=== PATIENT | male | born 1975 | race Two or more races ===

== ENCOUNTER 2016-11-24 08:26 | Emergency (ER) | payer SELFPAY ==
[~2016-11-24] VITALS: Ht 165.1 cm; Wt 72.6 kg
--- NOTE | 2016-11-24 08:36 | PHYS DOC ---
Adult General Chief Complaint Chief Complaint: ABDOMINAL PAIN [facility] HPI Patient is a 41 year old male who presents with testicular pain he states it started Sunday night and then on Sunday he went to an urgent care and was started on Bactrim and Flagyl. States the pains been getting worse and last night he cried secondary to pain. He denies any nausea vomiting fevers or chills. He does have some troubles urinating and feels like he has to force his urine out otherwise doesn't complain of dysuria. He states he's been having anal sex with his occasionally. He denies any history of sexually transmitted infections. Review of Systems Review of Systems Constitutional: Denies fever or chills [] Eyes: Denies change in visual acuity, redness, or eye pain [] HENT: Denies nasal congestion or sore throat [] Respiratory: Denies cough or shortness of breath [] Cardiovascular: No additional information not addressed in HPI [] GI: Denies abdominal pain, nausea, vomiting, bloody stools or diarrhea [] : Denies dysuria or hematuria [] Musculoskeletal: Denies back pain or joint pain [] Integument: Denies rash or skin lesions [] Neurologic: Denies headache, focal weakness or sensory changes [] Endocrine: Denies polyuria or polydipsia [] Allergies Allergies Allergies Coded Allergies Type Severity Reaction Last Updated Verified No Known Drug Allergies 11/24/16 No Physical Exam Physical Exam Constitutional: Well developed, well nourished, no acute distress, non-toxic appearance. [] HENT: Normocephalic, atraumatic, bilateral external ears normal, oropharynx moist, no oral exudates, nose normal. [] Eyes: PERRLA, EOMI, conjunctiva normal, no discharge. [] Neck: Normal range of motion, no tenderness, supple, no stridor. [] Cardiovascular:Heart rate regular rhythm, no murmur [] Lungs & Thorax: Bilateral breath sounds clear to auscultation [] Abdomen/genital: Bowel sounds normal, soft, no tenderness, no masses, no pulsatile masses. Left testicle swollen, approximately one half times the size of the right one. Skin: Warm, dry, no erythema, no rash. [] Back: No tenderness, no CVA tenderness. [] Extremities: No tenderness, no cyanosis, no clubbing, ROM intact, no edema. [] Neurologic: Alert and oriented X 3, normal motor function, normal sensory function, no focal deficits noted. [] Psychologic: Affect normal, judgement normal, mood normal. [] Current Patient Data Vital Signs Vital Signs Date Time Temp Pulse Resp B/P (MAP) Pulse Ox O2 Delivery O2 Flow Rate FiO2 11/24/16 08:39 97.9 77 18 108/67 (81) 100 Room Air 97.9 Lab Values Laboratory Tests Test 11/24/16 08:45 11/24/16 08:50 Urine Collection Type Void Urine Color Yellow Urine Clarity Clear Urine pH 6.0 Urine Specific [place] 1.025 Urine Protein Negative mg/dL (NEG-TRACE) Urine Glucose (UA) Negative mg/dL (NEG) Urine Ketones (Stick) Negative mg/dL (NEG) Urine Blood Negative (NEG) Urine Nitrite Negative (NEG) Urine Bilirubin Negative (NEG) Urine Urobilinogen Dipstick 0.2 mg/dL (0.2 mg/dL) Urine Leukocyte Esterase Small (NEG) Urine RBC Occ /HPF (0-2) Urine WBC 11-20 /HPF (0-4) Urine Squamous Epithelial Cells Few /LPF Urine Bacteria Few /HPF (0-FEW) Urine Mucus Marked /LPF White Blood Count 7.6 x10^3/uL (4.0-11.0) Red Blood Count 5.04 x10^6/uL (4.30-5.70) Hemoglobin 14.3 g/dL (13.0-17.5) Hematocrit 42.1 % (39.0-53.0) Mean Corpuscular Volume 84 fL (79-100) Mean Corpuscular Hemoglobin 28 pg (25-35) Mean Corpuscular Hemoglobin Concent 34 g/dL (31-37) Red Cell Distribution Width 13.6 % (11.5-14.5) Platelet Count 343 x10^3/uL (140-400) Neutrophils (%) (Auto) 68 % (31-73) Lymphocytes (%) (Auto) 17 % (24-48) L Monocytes (%) (Auto) 13 % (0-9) H Eosinophils (%) (Auto) 2 % (0-3) Basophils (%) (Auto) 1 % (0-3) Neutrophils # (Auto) 5.2 x10^3uL (1.8-7.7) Lymphocytes # (Auto) 1.3 x10^3/uL (1.0-4.8) Monocytes # (Auto) 0.9 x10^3/uL (0.0-1.1) Eosinophils # (Auto) 0.1 x10^3/uL (0.0-0.7) Basophils # (Auto) 0.1 x10^3/uL (0.0-0.2) Prothrombin Time 13.5 SEC (11.7-14.0) Prothrombin Time INR 1.1 (0.8-1.1) PTT 32 SEC (24-38) Sodium Level 136 mmol/L (136-145) Potassium Level 4.4 mmol/L (3.5-5.1) Chloride Level 101 mmol/L (98-107) Carbon Dioxide Level 33 mmol/L (21-32) H Anion Gap 2 (6-14) L Blood Urea Nitrogen 24 mg/dL (8-26) Creatinine 1.4 mg/dL (0.7-1.3) H Estimated GFR (Cockcroft-Gault) 55.8 Glucose Level 111 mg/dL (70-99) H Calcium Level 9.5 mg/dL (8.5-10.1) Total Bilirubin 0.1 mg/dL (0.2-1.0) L Direct Bilirubin 0.1 mg/dL (0.0-0.2) Aspartate Amino Transferase (AST) 22 U/L (15-37) Alanine Aminotransferase (ALT) 30 U/L (16-63) Alkaline Phosphatase 102 U/L (46-116) Creatine Kinase 134 U/L (39-308) Creatine Kinase MB (Mass) 0.9 ng/mL (0.0-3.6) Creatine Kinase MB Relative Index 0.7 % (0-4) Total Protein 8.1 g/dL (6.4-8.2) Albumin 3.2 g/dL (3.4-5.0) L Lipase 160 U/L (73-393) Laboratory Tests 11/24/16 08:50 Laboratory Tests 11/24/16 08:50 EKG EKG [] Radiology/Procedures Radiology/Procedures [facility] [address] [place] [address] IMAGING REPORT Signed PATIENT: MAGGIE STYLES ACCOUNT: [id number] : 1975 LOCATION: ER AGE: 41 SEX: M EXAM STATUS: REG ER ORD. PHYSICIAN: KJ VERDIN MD REASON: testicular pain PROCEDURE: TESTICULAR/SCROTUM Duplex sonography of the scrotum and testicles Clinical indications: Left testicular pain for 6 days. Findings: Duplex sonography of the scrotum and testicles was performed including man scale evaluation and color flow and waveform spectral analysis. The longitudinal and AP and transverse dimensions of the right testicle are 3.9 cm and 1.9 cm and 2.5 cm respectively. The longitudinal and AP and transverse dimensions of the left testicle are 3.4 cm and 1.9 cm and 2.2 cm respectively. Both testicles are homogeneous and exhibit symmetric color Doppler flow. Therefore, no testicular torsion is seen. There is abnormal diffuse enlargement of the left epididymis with significant hyperemia consistent with epididymitis. The left epididymis measures 25 mm in thickness. A small left tunica albuginea cyst is seen measuring 5 mm. Minimal left-sided hydrocele is seen. IMPRESSION: Severe left-sided epididymitis. DICTATED and SIGNED BY: MARY BINGHAM MD DATE: 11/24/16924 CC: KJ VERDIN MD; NO PCP ~ Impressions: Epididymitis Course & Med Decision Making Course & Med Decision Making Pertinent Labs and Imaging studies reviewed. (See chart for details) Patient has epididymitis and likely orchitis well. He's been on Bactrim and Flagyl the last 5 days and not improving. Ultrasound shows severe epididymitis. He is being switched to Levaquin 5 mg by mouth daily for 10 days and to follow- up with Dr. Finn's office. He is instructed to follow-up at with Dr. Finn is unable to fit him into his schedule. He is being discharged with [place] for pain and instructed not to drive while taking this medicine or drink alcohol. He is instructed to use condoms when having intercourse. TURP precautions given his agreeable to the plan and being discharged in stable condition this time. and sister were present for most of the interview process. Dragon Disclaimer Dragon Disclaimer This electronic medical record was generated, in whole or in part, using a voice recognition dictation system. Departure Departure Impression: Primary Impression: Epididymitis Disposition: HOME, SELF-CARE Condition: STABLE Referrals: FRANKLIN FINN MD Patient Instructions: Epididymitis Additional Instructions: You have epididymitis and possible inflammation of your testicles well. You will need take antibiotics for the next 10 days. You can also take pain meds as needed for pain and discomfort. You should follow-up with Dr. Finn. Please call his office on Sunday and schedule follow-up appointment. Return ER for severe pain, fevers, worsening swelling of your testicle or other concerns. Scripts Levofloxacin (LEVAQUIN) 500 Mg Tablet 1 TAB PO DAILY, #10 TAB Prov: KJ VERDIN MD 11/24/16 KJ VERDIN MD Nov 24, 2016 08:36
[2016-11-24 09:06] LABS: BASO # 0.1 x10^3/uL (0.0-0.2); BASO % 1 % (0-3); EOS % 2 % (0-3); HEMATOCRIT 42.1 % (39.0-53.0); HEMOGLOBIN 14.3 g/dL (13.0-17.5); LYMPH # 1.3 x10^3/uL (1.0-4.8); LYMPH % 17 % (24-48); MEAN CORPUSCULAR HEMOGLOBIN 28 pg (25-35); MEAN CORPUSCULAR HGB CONC 34 g/dL (31-37); MEAN CORPUSCULAR VOLUME 84 fL (79-100); MONO % 13 % (0-9); NEUT % 68 % (31-73); PLATELET COUNT 343 x10^3/uL (140-400); RED BLOOD COUNT 5.04 x10^6/uL (4.30-5.70); RED CELL DISTRIBUTION WIDTH 13.6 % (11.5-14.5); WHITE BLOOD COUNT 7.6 x10^3/uL (4.0-11.0)
[2016-11-24 09:08] LABS: BILIRUBIN,URINE NEGATIVE (NEG); GLUCOSE,URINE NEGATIVE (NEG); NITRITE,URINE NEGATIVE (NEG); PROTEIN,URINE NEGATIVE (NEG-TRACE); UROBILINOGEN,URINE 0.2 mg/dL (0.2 mg/dL)
[2016-11-24 09:15] LABS: SQUAMOUS EPITHELIAL CELL,UR FEW /LPF
[2016-11-24 09:16] LABS: INR 1.1 (0.8-1.1); PROTHROMBIN TIME PATIENT 13.5 SEC (11.7-14.0)
[2016-11-24 09:18] LABS: BACTERIA,URINE FEW /HPF (0-FEW); RBC,URINE OCC /HPF (0-2)
[2016-11-24 09:19] LABS: CALCIUM 9.5 mg/dL (8.5-10.1); CREATININE 1.4 mg/dL (0.7-1.3); GFR 55.8; POTASSIUM 4.4 mmol/L (3.5-5.1)
[2016-11-24 09:25] LABS: ALBUMIN 3.2 g/dL (3.4-5.0); DIRECT BILIRUBIN 0.1 mg/dL (0.0-0.2); TOTAL BILIRUBIN 0.1 mg/dL (0.2-1.0); TOTAL PROTEIN 8.1 g/dL (6.4-8.2)
--- NOTE | 2016-11-24 09:31 | RAD ---
Duplex sonography of the scrotum and testicles Clinical indications: Left testicular pain for 6 days. Findings: Duplex sonography of the scrotum and testicles was performed including man scale evaluation and color flow and waveform spectral analysis. The longitudinal and AP and transverse dimensions of the right testicle are 3.9 cm and 1.9 cm and 2.5 cm respectively. The longitudinal and AP and transverse dimensions of the left testicle are 3.4 cm and 1.9 cm and 2.2 cm respectively. Both testicles are homogeneous and exhibit symmetric color Doppler flow. Therefore, no testicular torsion is seen. There is abnormal diffuse enlargement of the left epididymis with significant hyperemia consistent with epididymitis. The left epididymis measures 25 mm in thickness. A small left tunica albuginea cyst is seen measuring 5 mm. Minimal left-sided hydrocele is seen. IMPRESSION: Severe left-sided epididymitis.
[2016-11-24 09:33] LABS: CKMB MASS 0.9 ng/mL (0.0-3.6)
[2016-11-24 10:20] VITALS: BP 114/79
[2016-11-24] MEDS ORDERED: LEVO500T59 PO (11:27)
== END 2016-11-24 11:59 | disposition home or self-care (01) ==
LOC: ER 08:26
DX: N45.1 Epididymitis (principal)
CPT/HCPCS: 36415; 76870; 80048; 80076; 81001; 82553; 83690; 85027; 85610; 85730; 87086; 99285-25